=== PATIENT | female | born 1980 | race Caucasian/White ===

== ENCOUNTER 2024-05-03 09:33 | Emergency (ER) | payer MEDICAID ==
[~2024-05-03] VITALS: Ht 165.1 cm; Wt 118.0 kg
[2024-05-03 09:39] VITALS: O2SAT 97
[2024-05-03 10:01] LABS: BASOPHILS % 0.8 % (0.0-2.0); EOSINOPHILS % 3.2 % (0.0-5.0); HEMATOCRIT. 42.7 % (36.0-48.0); HEMOGLOBIN. 13.8 g/dL (12.0-16.0); LYMPHOCYTES % 26.9 % (20.0-50.0); MEAN CORPUSCULAR HEMOGLOBIN 26.6 pg (28.0-32.0); MEAN CORPUSCULAR HGB CONC 32.4 g/dL (31.0-37.0); MEAN CORPUSCULAR VOLUME 82.1 fL (81.0-99.0); MEAN PLATELET VOLUME 9.3 fl (7.4-10.4); MONOCYTES % 6.2 % (2.0-8.0); NEUTROPHILS % 62.9 % (40.0-76.0); PLATELET 287 x1000/uL (130-400); RED BLOOD CELL COUNT 5.19 mill/uL (4.2-5.4); RED CELL DISTRIBUTION WIDTH 14.4 % (11.6-14.6); WHITE BLOOD COUNT 10.3 x1000/uL (4.5-11.0)
[2024-05-03 10:08] LABS: CARBON DIOXIDE 28 mEq/L (21-32); CHLORIDE 99 mEq/L (98-107); POTASSIUM 4.9 mEq/L (3.5-5.1); SODIUM 132 mEq/L (136-145)
[2024-05-03 10:09] LABS: CALCIUM 9.3 mg/dL (8.7-10.4)
[2024-05-03 10:14] LABS: CREATININE 0.9 mg/dL (0.6-1.0); UREA NITROGEN BLOOD 15 mg/dL (9-23)
[2024-05-03 10:15] LABS: ALANINE AMINOTRANSFERASE 10 IU/L (10-49)
[2024-05-03 10:16] LABS: ALBUMIN 3.7 g/dL (3.2-4.8); ASPARTATE AMINOTRANSFERASE 20 IU/L (<34); BILIRUBIN TOTAL 0.4 mg/dL (0.1-1.0); PROTEIN TOTAL 7.1 g/dL (6.0-8.3)
[2024-05-03 10:31] LABS: BILIRUBIN DIRECT < 0.1 mg/dL (<=3.0)
[2024-05-03 10:33] LABS: GLUCOSE 495 mg/dL (70-105)
[2024-05-03] MEDS: HYDROCODONE/ACETAMINOPHEN 5/325MG TABLET PO STA (11:02)
[2024-05-03] MEDS ORDERED: METF-414 MT (11:17)
[2024-05-03] MEDS ORDERED: OXYC-100 MT (11:17)
[2024-05-03 11:37] VITALS: BP 135/77; PULSE 88; RESP 16; TEMP 36.50292; O2SAT 97
[2024-05-03 11:44] VITALS: TEMP 97.7
[2024-05-03] MEDS: METFORMIN HCL 500MG TABLET PO ONE (11:44)
[2024-05-03] MEDS: ACETAMINOPHEN 325MG TABLET PO ONE (11:44)
== END 2024-05-03 11:38 | disposition home or self-care (01) ==
LOC: ER 09:33
DX: S20.219A Contusion of unspecified front wall of thorax, initial encounter (principal); E11.65 Type 2 diabetes mellitus with hyperglycemia; W01.0XXA Fall on same level from slipping, tripping and stumbling without subsequent striking against object, initial encounter; Z98.890 Other specified postprocedural states; Y93.89 Activity, other specified; Y92.89 Other specified places as the place of occurrence of the external cause; Y99.8 Other external cause status
CPT/HCPCS: 36415; 71250; 80048; 80076; 85025; 93005; 99284